=== PATIENT | female | born 1945 | race Caucasian/White ===

== ENCOUNTER 2017-11-21 12:17 | Emergency (ER) | payer MEDICARE, OTHER ==
[~2017-11-21] VITALS: Ht 157.5 cm; Wt 69.1 kg
[2017-11-21 13:14] LABS: GLUCOSE,POINT OF CARE 145 MG/DL (70-110)
[2017-11-21 15:54] LABS: BASOPHILS % (AUTO) 0.5 % (0.0-2.0); EOSINOPHILS % (AUTO) 0.5 % (1.0-6.0); HEMATOCRIT 40.4 % (36-46); HEMOGLOBIN 13.9 g/dL (12.0-16.0); LYMPHOCYTES # (AUTO) 1.7 K/uL (1.0-4.8); LYMPHOCYTES % (AUTO) 17.3 % (22.0-44.0); MEAN CORPUSCULAR HEMOGLOBIN 31.1 pg (26.0-34.0); MEAN CORPUSCULAR HGB CONC 34.5 G/dL (31.0-37.0); MEAN CORPUSCULAR VOLUME 90 fL (80-100); MONOCYTES # (AUTO) 0.5 K/uL (0.1-1.0); MONOCYTES % (AUTO) 5.1 % (2.0-9.0); NEUTROPHILS # (AUTO) 7.6 K/uL (1.8-7.7); NEUTROPHILS % (AUTO) 76.6 % (40.0-70.0); PLATELET COUNT (AUTO) 379 K/uL (150-450); RED BLOOD CELL COUNT(AUTO) 4.47 MIL/uL (4.00-5.20); RED CELL DISTRIBUTION WIDTH 13.2 % (11.5-14.5)
[2017-11-21 16:03] LABS: ANION GAP 11 mmol/L (8-16); CARBON DIOXIDE 26 mmol/L (22-29); CHLORIDE 105 mmol/L (98-107); CREATININE 0.69 mg/dL (0.60-1.30); GLUCOSE,RANDOM 163 mg/dL (70-110); POTASSIUM 3.5 mmol/L (3.5-5.1); SODIUM SERUM 142 mmol/L (136-145); UREA NITROGEN, BLOOD 8 mg/dL (7-18)
[2017-11-21 16:04] LABS: GLOMERULAR FILTR. RATE CALC > 60 mL/min (>60)
[2017-11-21 16:10] LABS: ALANINE AMINOTRANSFERASE 20 U/L (12-78); ALBUMIN 3.6 g/dL (3.4-5.0); ALKALINE PHOSPHATASE 115 U/L (46-116); ASPARTATE AMINOTRANSFERASE 18 U/L (15-37); BILIRUBIN,TOTAL 0.6 mg/dL (0.1-1.0); LIPASE 93 U/L (73-393)
[2017-11-21 19:46] VITALS: BP 143/71
[2017-11-21 20:17] LABS: AMPHET/METH SCREEN,URINE NEGATIVE (NEGATIVE); BARBITURATE SCREEN, URINE NEGATIVE (NEGATIVE); BENZODIAZEPINES SCREEN,URINE NEGATIVE (NEGATIVE); CANNABINOID SCREEN,URINE NEGATIVE (NEGATIVE); COCAINE SCREEN,URINE NEGATIVE (NEGATIVE); METHADONE SCREEN, URINE NEGATIVE (NEGATIVE); OPIATE SCREEN,URINE NEGATIVE (NEGATIVE); PHENCYCLIDINE SCREEN,URINE NEGATIVE (NEGATIVE)
== END 2017-11-21 20:23 | disposition home or self-care (01) ==
LOC: EMS 12:17
DX: R10.9 Unspecified abdominal pain (principal); E78.00 Pure hypercholesterolemia, unspecified; I10 Essential (primary) hypertension
CPT/HCPCS: 93005; 99285

== ENCOUNTER 2017-12-27 21:49 | Emergency (ER) | payer MEDICARE, OTHER ==
[~2017-12-27] VITALS: Ht 157.5 cm; Wt 62.8 kg
[2017-12-27 22:03] LABS: GLUCOSE,POINT OF CARE 116 MG/DL (70-110)
[2017-12-27 23:15] LABS: BASOPHILS % (AUTO) 0.7 % (0.0-2.0); HEMATOCRIT 40.4 % (36-46); HEMOGLOBIN 13.4 g/dL (12.0-16.0); LYMPHOCYTES # (AUTO) 2.1 K/uL (1.0-4.8); LYMPHOCYTES % (AUTO) 26.8 % (22.0-44.0); MEAN CORPUSCULAR HEMOGLOBIN 30.3 pg (26.0-34.0); MEAN CORPUSCULAR HGB CONC 33.2 G/dL (31.0-37.0); MEAN CORPUSCULAR VOLUME 92 fL (80-100); MONOCYTES # (AUTO) 0.5 K/uL (0.1-1.0); MONOCYTES % (AUTO) 6.3 % (2.0-9.0); NEUTROPHILS # (AUTO) 5.1 K/uL (1.8-7.7); NEUTROPHILS % (AUTO) 64.2 % (40.0-70.0); PLATELET COUNT (AUTO) 362 K/uL (150-450); RED BLOOD CELL COUNT(AUTO) 4.42 MIL/uL (4.00-5.20); RED CELL DISTRIBUTION WIDTH 13.5 % (11.5-14.5)
[2017-12-27 23:24] LABS: ANION GAP 10 mmol/L (8-16); CALCIUM, TOTAL 9.9 mg/dL (8.8-10.5); CARBON DIOXIDE 27 mmol/L (22-29); CHLORIDE 106 mmol/L (98-107); GLUCOSE,RANDOM 111 mg/dL (70-110); POTASSIUM 3.6 mmol/L (3.5-5.1); SODIUM SERUM 143 mmol/L (136-145); UREA NITROGEN, BLOOD 7 mg/dL (7-18)
[2017-12-27 23:26] LABS: GLOMERULAR FILTR. RATE CALC > 60 mL/min (>60)
[2017-12-27 23:34] LABS: ALANINE AMINOTRANSFERASE 19 U/L (12-78); ALBUMIN 3.9 g/dL (3.4-5.0); ALKALINE PHOSPHATASE 104 U/L (46-116); ASPARTATE AMINOTRANSFERASE 20 U/L (15-37); BILIRUBIN,TOTAL 0.5 mg/dL (0.1-1.0); TOTAL PROTEIN, SERUM 8.4 g/dL (6.4-8.2)
[2017-12-28 02:28] VITALS: BP 132/76
== END 2017-12-28 02:39 | disposition home or self-care (01) ==
LOC: EMS 21:50
DX: F22 Delusional disorders (principal); E11.9 Type 2 diabetes mellitus without complications; I10 Essential (primary) hypertension
CPT/HCPCS: 93005; 99285

== ENCOUNTER 2018-07-14 13:51 | Inpatient (IN) | payer MEDICARE, MEDICAID ==
[~2018-07-14] VITALS: Ht 157.5 cm; Wt 73.1 kg
[2018-07-14] MEDS ORDERED: ALBU8.5H8 IH (17:10)
[2018-07-14] MEDS ORDERED: PARO10TA89 PO (17:10)
[2018-07-14] MEDS ORDERED: VALS1TAB75 PO (17:10)
[2018-07-14 17:14] LABS: GLUCOSE,POINT OF CARE 105 MG/DL (70-110)
[2018-07-14 17:17] LABS: BASOPHILS % (AUTO) 0.7 % (0.0-2.0); EOSINOPHILS % (AUTO) 1.1 % (1.0-6.0); HEMATOCRIT 41.3 % (36-46); HEMOGLOBIN 14.1 g/dL (12.0-16.0); LYMPHOCYTES # (AUTO) 1.7 K/uL (1.0-4.8); LYMPHOCYTES % (AUTO) 26.3 % (22.0-44.0); MEAN CORPUSCULAR HEMOGLOBIN 30.9 pg (26.0-34.0); MEAN CORPUSCULAR HGB CONC 34.1 G/dL (31.0-37.0); MEAN CORPUSCULAR VOLUME 91 fL (80-100); MONOCYTES # (AUTO) 0.4 K/uL (0.1-1.0); MONOCYTES % (AUTO) 5.8 % (2.0-9.0); NEUTROPHILS # (AUTO) 4.3 K/uL (1.8-7.7); NEUTROPHILS % (AUTO) 66.1 % (40.0-70.0); PLATELET COUNT (AUTO) 384 K/uL (150-450); RED BLOOD CELL COUNT(AUTO) 4.55 MIL/uL (4.00-5.20); RED CELL DISTRIBUTION WIDTH 13.5 % (11.5-14.5)
[2018-07-14 17:28] LABS: ANION GAP 9 mmol/L (8-16); CALCIUM, TOTAL 9.6 mg/dL (8.8-10.5); CARBON DIOXIDE 27 mmol/L (22-29); CHLORIDE 104 mmol/L (98-107); GLOMERULAR FILTR. RATE CALC > 60 mL/min (>60); GLUCOSE,RANDOM 117 mg/dL (70-110); POTASSIUM 4.3 mmol/L (3.5-5.1); SODIUM SERUM 140 mmol/L (136-145); UREA NITROGEN, BLOOD 8 mg/dL (7-18)
[2018-07-14 17:43] LABS: ALANINE AMINOTRANSFERASE 19 U/L (12-78); ALBUMIN 3.8 g/dL (3.4-5.0); ALKALINE PHOSPHATASE 115 U/L (46-116); ASPARTATE AMINOTRANSFERASE 21 U/L (15-37); BILIRUBIN,TOTAL 0.7 mg/dL (0.1-1.0); THYROID STIMULATING HORMONE 1.97 uIU/mL (0.36-3.74); TOTAL PROTEIN, SERUM 8.5 g/dL (6.4-8.2)
[2018-07-14] MEDS ORDERED: LORazepam 1 MG TABLET PO PRN (19:45)
[2018-07-14] MEDS ORDERED: HALOPERIDOL 5 MG TABLET PO PRN (19:45)
[2018-07-14] MEDS ORDERED: ZOLPIDEM TARTRATE 10 MG TABLET PO PRN (19:45)
[2018-07-14] MEDS ORDERED: LORazepam 1 MG TABLET PO ONE (19:45)
[2018-07-14 21:04] LABS: CHOL/HDL RATIO 2.8 (3.9-5.7); CHOLESTEROL 196 mg/dL (131-200); FREE T4 (FREE THYROXINE) 1.19 ng/dL (0.76-1.46); HDL CHOLESTEROL 70 mg/dL (40-60); LDL CHOL (CALC.) 110 mg/dL (0-130); TRIGLYCERIDES 78 mg/dL (15-150)
[2018-07-14 21:15] LABS: HEMOGLOBIN A1C 6.1 % (4.5-6.2)
[2018-07-14] MEDS ORDERED: CloNIDine HCL 0.1 MG TABLET PO PRN (22:00)
[2018-07-14] MEDS ORDERED: MAG HYDROX/AL HYDROX/SIMETH ES 30 ML SUSPENSION UDCUP PO PRN (22:00)
[2018-07-14] MEDS ORDERED: ACETAMINOPHEN 325 MG TABLET PO PRN (22:00)
[2018-07-14] MEDS ORDERED: GuaiFENesin/D-METHORPHAN [SUGAR-FREE] 200-20MG/10 ML SYRUP UDCUP PO PRN (22:00)
[2018-07-14] MEDS ORDERED: ONDANSETRON HCL 4 MG TABLET PO PRN (22:00)
[2018-07-14] MEDS ORDERED: DOCUSATE SODIUM 100 MG CAPSULE PO PRN (22:00)
[2018-07-14] MEDS ORDERED: IBUPROFEN 400 MG TABLET PO PRN (22:00)
[2018-07-14] MEDS ORDERED: MAGNESIUM HYDROXIDE SUSPENSION 30 ML UDCUP PO PRN (22:00)
[2018-07-14] MEDS ORDERED: ALBUTEROL SULFATE HFA 90 MCG/PUFF 8 GM INHALER IH PRN (22:00)
[2018-07-14] MEDS ORDERED: LOPERAMIDE HCL 2 MG CAPSULE PO PRN (22:00)
[2018-07-14] MEDS ORDERED: PETROLATUM,WHITE 28 GM JELLY TP PRN (22:00)
[2018-07-14 22:05] VITALS: BP 134/54
[2018-07-15 06:19] LABS: HEMOGLOBIN A1C 6.2 % (4.5-6.2)
[2018-07-15 06:32] LABS: CHOL/HDL RATIO 2.7 (3.9-5.7); THYROID STIMULATING HORMONE 1.75 uIU/mL (0.36-3.74)
[2018-07-15 08:33] VITALS: BP 123/85
[2018-07-15] MEDS ORDERED: HYDROCHLOROTHIAZIDE 25 MG TABLET PO SCH (09:00)
[2018-07-15] MEDS: HYDROCHLOROTHIAZIDE 25 MG TABLET PO SCH (11:32)
[2018-07-15] MEDS: VALSARTAN 160 MG TABLET PO SCH (11:33)
[2018-07-15 18:52] LABS: AMPHET/METH SCREEN,URINE NEGATIVE (NEGATIVE); BARBITURATE SCREEN, URINE NEGATIVE (NEGATIVE); BENZODIAZEPINES SCREEN,URINE NEGATIVE (NEGATIVE); CANNABINOID SCREEN,URINE NEGATIVE (NEGATIVE); COCAINE SCREEN,URINE NEGATIVE (NEGATIVE); METHADONE SCREEN, URINE NEGATIVE (NEGATIVE); OPIATE SCREEN,URINE NEGATIVE (NEGATIVE)
[2018-07-15 18:54] LABS: PHENCYCLIDINE SCREEN,URINE NEGATIVE (NEGATIVE)
[2018-07-15 19:11] VITALS: BP 127/82
[2018-07-15 19:29] LABS: APPEARANCE,URINE CLEAR (CLEAR); BILIRUBIN,URINE NEGATIVE (NEGATIVE); GLUCOSE, URINE (UA) NEGATIVE (NEGATIVE); KETONES,URINE NEGATIVE (NEGATIVE); LEUKOCYTE ESTERASE ,URINE NEGATIVE (NEGATIVE); NITRATE,URINE NEGATIVE (NEGATIVE); OCCULT BLOOD,URINE NEGATIVE (NEGATIVE); PH,URINE 6.5 (5.0-8.0); PROTEIN,URINE NEGATIVE (NEGATIVE)
[2018-07-16 08:05] VITALS: BP 154/66
[2018-07-16] MEDS: HYDROCHLOROTHIAZIDE 25 MG TABLET PO SCH (10:43)
[2018-07-16] MEDS: VALSARTAN 160 MG TABLET PO SCH (10:43)
[2018-07-16 17:00] VITALS: BP 140/67
[2018-07-16] MEDS: RisperiDONE 1 MG TABLET PO SCH (20:54)
[2018-07-17 08:36] VITALS: BP 138/86
[2018-07-17] MEDS: HYDROCHLOROTHIAZIDE 25 MG TABLET PO SCH (10:14)
[2018-07-17] MEDS: VALSARTAN 160 MG TABLET PO SCH (10:14)
[2018-07-17 16:54] VITALS: BP 122/64
[2018-07-17] MEDS: RisperiDONE 1 MG TABLET PO SCH (21:22)
[2018-07-18 08:22] VITALS: BP 156/74
[2018-07-18] MEDS: HYDROCHLOROTHIAZIDE 25 MG TABLET PO SCH (10:40)
[2018-07-18] MEDS: VALSARTAN 160 MG TABLET PO SCH (10:41)
[2018-07-18] MEDS ORDERED: ALBUTEROL SULFATE HFA 90 MCG/PUFF 8 GM INHALER IH PRN (11:15)
[2018-07-18] MEDS: RisperiDONE 1 MG TABLET PO SCH (21:11)
[2018-07-18 22:46] VITALS: BP 124/85
[2018-07-19 09:11] VITALS: BP 142/70
[2018-07-19] MEDS: VALSARTAN 160 MG TABLET PO SCH (10:08)
[2018-07-19] MEDS: HYDROCHLOROTHIAZIDE 25 MG TABLET PO SCH (10:08)
[2018-07-19] MEDS: FLUTICASONE/VILANTEROL 200-25 MCG/INH INHALER [14] IH SCH (10:10)
[2018-07-19 16:30] VITALS: BP 130/77
[2018-07-19] MEDS: RisperiDONE 1 MG TABLET PO SCH (21:15)
[2018-07-20 08:00] VITALS: BP 135/65
[2018-07-20] MEDS: FLUTICASONE/VILANTEROL 200-25 MCG/INH INHALER [14] IH SCH (09:20)
[2018-07-20] MEDS: VALSARTAN 160 MG TABLET PO SCH (09:21)
[2018-07-20] MEDS: HYDROCHLOROTHIAZIDE 25 MG TABLET PO SCH (09:21)
[2018-07-20 16:45] VITALS: BP 132/77
[2018-07-20] MEDS: RisperiDONE 2 MG TABLET PO SCH (20:52)
[2018-07-21 08:00] VITALS: BP 157/79
[2018-07-21] MEDS: VALSARTAN 160 MG TABLET PO SCH (10:00)
[2018-07-21] MEDS: HYDROCHLOROTHIAZIDE 25 MG TABLET PO SCH (10:00)
[2018-07-21] MEDS: FLUTICASONE/VILANTEROL 200-25 MCG/INH INHALER [14] IH SCH (10:01)
[2018-07-21 16:15] VITALS: BP 128/50
[2018-07-21] MEDS: RisperiDONE 2 MG TABLET PO SCH (21:00)
[2018-07-22 11:38] VITALS: BP 129/80
[2018-07-22] MEDS: VALSARTAN 160 MG TABLET PO SCH (11:39)
[2018-07-22] MEDS: HYDROCHLOROTHIAZIDE 25 MG TABLET PO SCH (11:39)
[2018-07-22] MEDS: FLUTICASONE/VILANTEROL 200-25 MCG/INH INHALER [14] IH SCH (11:40)
[2018-07-22 17:04] VITALS: BP 115/56
[2018-07-22] MEDS: RisperiDONE 2 MG TABLET PO SCH (20:14)
[2018-07-23 08:00] VITALS: BP 151/62
[2018-07-23] MEDS: RisperiDONE 1 MG TABLET PO SCH (09:39)
[2018-07-23] MEDS: VALSARTAN 160 MG TABLET PO SCH (09:39)
[2018-07-23] MEDS: FLUTICASONE/VILANTEROL 200-25 MCG/INH INHALER [14] IH SCH (09:39)
[2018-07-23] MEDS: HYDROCHLOROTHIAZIDE 25 MG TABLET PO SCH (09:39)
[2018-07-23] MEDS: RisperiDONE 2 MG TABLET PO SCH (20:01)
[2018-07-23 20:47] VITALS: BP 112/70
[2018-07-24 08:05] VITALS: BP 153/77
[2018-07-24] MEDS: RisperiDONE 1 MG TABLET PO SCH (09:32)
[2018-07-24] MEDS: VALSARTAN 160 MG TABLET PO SCH (09:32)
[2018-07-24] MEDS: HYDROCHLOROTHIAZIDE 25 MG TABLET PO SCH (09:32)
[2018-07-24] MEDS: FLUTICASONE/VILANTEROL 200-25 MCG/INH INHALER [14] IH SCH (09:35)
[2018-07-24 16:27] VITALS: BP 130/75
[2018-07-24] MEDS: RisperiDONE 2 MG TABLET PO SCH (20:53)
[2018-07-25 08:30] VITALS: BP 132/62
[2018-07-25] MEDS: VALSARTAN 160 MG TABLET PO SCH (09:11)
[2018-07-25] MEDS: RisperiDONE 1 MG TABLET PO SCH (09:11)
[2018-07-25] MEDS: FLUTICASONE/VILANTEROL 200-25 MCG/INH INHALER [14] IH SCH (09:11)
[2018-07-25] MEDS: HYDROCHLOROTHIAZIDE 25 MG TABLET PO SCH (09:11)
[2018-07-25 16:31] VITALS: BP 124/78
[2018-07-25] MEDS: RisperiDONE 2 MG TABLET PO SCH (20:53)
[2018-07-26] MEDS: RisperiDONE 1 MG TABLET PO SCH (08:41)
[2018-07-26] MEDS: HYDROCHLOROTHIAZIDE 25 MG TABLET PO SCH (08:42)
[2018-07-26] MEDS: VALSARTAN 160 MG TABLET PO SCH (08:42)
[2018-07-26] MEDS: FLUTICASONE/VILANTEROL 200-25 MCG/INH INHALER [14] IH SCH (08:43)
[2018-07-26 09:08] VITALS: BP 132/74
[2018-07-26 11:03] VITALS: BP 132/72
[2018-07-26 16:58] VITALS: BP 108/59
[2018-07-26] MEDS: RisperiDONE 2 MG TABLET PO SCH (20:12)
[2018-07-27 08:02] VITALS: BP 143/77
[2018-07-27] MEDS: HYDROCHLOROTHIAZIDE 25 MG TABLET PO SCH (08:27)
[2018-07-27] MEDS: RisperiDONE 1 MG TABLET PO SCH (08:27)
[2018-07-27] MEDS: FLUTICASONE/VILANTEROL 200-25 MCG/INH INHALER [14] IH SCH (08:28)
[2018-07-27] MEDS: VALSARTAN 160 MG TABLET PO SCH (08:28)
[2018-07-27 17:29] VITALS: BP 130/79
[2018-07-27] MEDS: RisperiDONE 2 MG TABLET PO SCH (20:17)
[2018-07-28 08:20] VITALS: BP 132/63
[2018-07-28] MEDS: HYDROCHLOROTHIAZIDE 25 MG TABLET PO SCH (08:41)
[2018-07-28] MEDS: RisperiDONE 1 MG TABLET PO SCH (08:41)
[2018-07-28] MEDS: FLUTICASONE/VILANTEROL 200-25 MCG/INH INHALER [14] IH SCH (08:42)
[2018-07-28] MEDS: VALSARTAN 160 MG TABLET PO SCH (08:42)
[2018-07-28 16:41] VITALS: BP 113/86
[2018-07-28] MEDS: RisperiDONE 2 MG TABLET PO SCH (20:50)
[2018-07-29 08:00] VITALS: BP 131/84
[2018-07-29] MEDS: VALSARTAN 160 MG TABLET PO SCH (09:02)
[2018-07-29] MEDS: HYDROCHLOROTHIAZIDE 25 MG TABLET PO SCH (09:02)
[2018-07-29] MEDS: FLUTICASONE/VILANTEROL 200-25 MCG/INH INHALER [14] IH SCH (09:03)
[2018-07-29] MEDS: RisperiDONE 1 MG TABLET PO SCH (09:11)
[2018-07-29 17:12] VITALS: BP 125/82
[2018-07-29] MEDS: RisperiDONE 2 MG TABLET PO SCH (21:10)
[2018-07-30 08:30] VITALS: BP 153/73
[2018-07-30] MEDS: HYDROCHLOROTHIAZIDE 25 MG TABLET PO SCH (09:15)
[2018-07-30] MEDS: FLUTICASONE/VILANTEROL 200-25 MCG/INH INHALER [14] IH SCH (09:15)
[2018-07-30] MEDS: RisperiDONE 1 MG TABLET PO SCH (09:16)
[2018-07-30] MEDS: VALSARTAN 160 MG TABLET PO SCH (09:16)
[2018-07-30] MEDS ORDERED: RISP2 PO (10:32)
[2018-07-30] MEDS ORDERED: RISP1 PO (10:32)
[2018-07-30] MEDS ORDERED: FLUT1BLS IH (10:37)
[2018-07-30] MEDS ORDERED: HYDR25TA PO (10:38)
[2018-07-30] MEDS ORDERED: VALS160T2 PO (10:38)
== END 2018-07-30 13:30 | disposition home or self-care (01) | DRG 885 ==
LOC: EMS 13:52 → 3EI 20:30
PROVIDERS: ADMIT Psychiatry & Neurology Psychiatry; ATTEND Psychiatry & Neurology Psychiatry
DX: F20.0 Paranoid schizophrenia (principal); J45.901 Unspecified asthma with (acute) exacerbation; E78.5 Hyperlipidemia, unspecified; I10 Essential (primary) hypertension; E11.9 Type 2 diabetes mellitus without complications; Z79.899 Other long term (current) drug therapy; F32.9 Major depressive disorder, single episode, unspecified
CPT/HCPCS: 80307; 83036; 84439; 84443; G0480

== ENCOUNTER 2018-10-29 13:57 | Inpatient (IN) | payer MEDICARE, MEDICAID ==
[~2018-10-29] VITALS: Ht 157.5 cm; Wt 73.0 kg
[~2018-10-29 13:57] MED LIST: FLUT1BLS IH; HYDR25TA PO; RISP1 PO; RISP2 PO; VALS160T2 PO
[2018-10-29 15:07] LABS: BASOPHILS % (AUTO) 0.6 % (0.0-2.0); EOSINOPHILS % (AUTO) 1.4 % (1.0-6.0); HEMATOCRIT 39.9 % (36-46); HEMOGLOBIN 13.2 g/dL (12.0-16.0); LYMPHOCYTES # (AUTO) 2.1 K/uL (1.0-4.8); LYMPHOCYTES % (AUTO) 31.8 % (22.0-44.0); MEAN CORPUSCULAR HEMOGLOBIN 31.4 pg (26.0-34.0); MEAN CORPUSCULAR VOLUME 95 fL (80-100); MONOCYTES # (AUTO) 0.4 K/uL (0.1-1.0); MONOCYTES % (AUTO) 6.2 % (2.0-9.0); NEUTROPHILS # (AUTO) 4.1 K/uL (1.8-7.7); PLATELET COUNT (AUTO) 364 K/uL (150-450); RED CELL DISTRIBUTION WIDTH 13.6 % (11.5-14.5)
[2018-10-29 15:18] LABS: GLUCOSE,POINT OF CARE 110 MG/DL (70-110)
[2018-10-29 15:19] LABS: ANION GAP 7 mmol/L (8-16); CALCIUM, TOTAL 9.7 mg/dL (8.8-10.5); CARBON DIOXIDE 28 mmol/L (22-29); CHLORIDE 104 mmol/L (98-107); CREATININE 0.66 mg/dL (0.60-1.30); GLUCOSE,RANDOM 107 mg/dL (70-110); POTASSIUM 3.8 mmol/L (3.5-5.1); SODIUM SERUM 139 mmol/L (136-145); UREA NITROGEN, BLOOD 12 mg/dL (7-18)
[2018-10-29 15:20] LABS: GLOMERULAR FILTR. RATE CALC > 60 mL/min (>60)
[2018-10-29 15:25] LABS: ALANINE AMINOTRANSFERASE 20 U/L (12-78); ALBUMIN 4.1 g/dL (3.4-5.0); ALKALINE PHOSPHATASE 83 U/L (46-116); ASPARTATE AMINOTRANSFERASE 16 U/L (15-37); BILIRUBIN,TOTAL 0.6 mg/dL (0.1-1.0)
[2018-10-29 18:07] LABS: APPEARANCE,URINE CLEAR (CLEAR); BILIRUBIN,URINE NEGATIVE (NEGATIVE); GLUCOSE, URINE (UA) NEGATIVE (NEGATIVE); KETONES,URINE NEGATIVE (NEGATIVE); LEUKOCYTE ESTERASE ,URINE NEGATIVE (NEGATIVE); NITRATE,URINE NEGATIVE (NEGATIVE); OCCULT BLOOD,URINE MODERATE (NEGATIVE); PROTEIN,URINE NEGATIVE (NEGATIVE)
[2018-10-29 18:12] LABS: AMPHET/METH SCREEN,URINE NEGATIVE (NEGATIVE); BARBITURATE SCREEN, URINE NEGATIVE (NEGATIVE); BENZODIAZEPINES SCREEN,URINE NEGATIVE (NEGATIVE); CANNABINOID SCREEN,URINE NEGATIVE (NEGATIVE); COCAINE SCREEN,URINE NEGATIVE (NEGATIVE); METHADONE SCREEN, URINE NEGATIVE (NEGATIVE); OPIATE SCREEN,URINE NEGATIVE (NEGATIVE)
[2018-10-29 18:15] LABS: PHENCYCLIDINE SCREEN,URINE NEGATIVE (NEGATIVE)
[2018-10-29 18:55] LABS: BACTERIA,URINE None Seen /HPF (None Seen)
[2018-10-29 18:56] LABS: SQUAMOUS EPITHELIAL CELL,UR Rare /LPF (None Seen); WBC,URINE 0-2 /HPF (0-5)
[2018-10-29 22:28] LABS: GLUCOSE,POINT OF CARE 99 MG/DL (70-110)
[2018-10-29] MEDS ORDERED: ZOLPIDEM TARTRATE 10 MG TABLET PO PRN (22:30)
[2018-10-29] MEDS ORDERED: LORazepam 2 MG TABLET PO PRN (22:30)
[2018-10-29] MEDS ORDERED: HALOPERIDOL 5 MG TABLET PO PRN (22:30)
[2018-10-30 00:06] VITALS: BP 174/81
[2018-10-30] MEDS ORDERED: LOPERAMIDE HCL 2 MG CAPSULE PO PRN (06:45)
[2018-10-30] MEDS ORDERED: CloNIDine HCL 0.1 MG TABLET PO PRN (06:45)
[2018-10-30] MEDS ORDERED: MAGNESIUM HYDROXIDE SUSPENSION 30 ML UDCUP PO PRN (06:45)
[2018-10-30] MEDS ORDERED: MAG HYDROX/AL HYDROX/SIMETH ES 30 ML SUSPENSION UDCUP PO PRN (06:45)
[2018-10-30] MEDS ORDERED: PETROLATUM,WHITE 28 GM JELLY TP PRN (06:45)
[2018-10-30] MEDS ORDERED: ONDANSETRON HCL 4 MG TABLET PO PRN (06:45)
[2018-10-30] MEDS ORDERED: DOCUSATE SODIUM 100 MG CAPSULE PO PRN (06:45)
[2018-10-30] MEDS ORDERED: NICOTINE 14 MG/24 HOUR PATCH TD PRN (06:45)
[2018-10-30] MEDS ORDERED: GuaiFENesin/D-METHORPHAN [SUGAR-FREE] 200-20MG/10 ML SYRUP UDCUP PO PRN (06:45)
[2018-10-30] MEDS ORDERED: ACETAMINOPHEN 325 MG TABLET PO PRN (06:45)
[2018-10-30] MEDS ORDERED: IBUPROFEN 400 MG TABLET PO PRN (06:45)
[2018-10-30] MEDS ORDERED: ALBUTEROL SULFATE HFA 90 MCG/PUFF 8 GM INHALER IH PRN (06:45)
[2018-10-30 08:05] VITALS: BP 164/85
[2018-10-30] MEDS: FLUTICASONE/VILANTEROL 200-25 MCG/INH INHALER [14] IH SCH (09:43)
[2018-10-30] MEDS: HYDROCHLOROTHIAZIDE 25 MG TABLET PO SCH (09:43)
[2018-10-30] MEDS: VALSARTAN 160 MG TABLET PO SCH (09:43)
[2018-10-30 16:16] VITALS: BP 158/68
[2018-10-30] MEDS: RisperiDONE 2 MG TABLET PO SCH (20:34)
[2018-10-31 07:27] LABS: BASOPHILS % (AUTO) 0.6 % (0.0-2.0); EOSINOPHILS % (AUTO) 3.4 % (1.0-6.0); HEMATOCRIT 38.1 % (36-46); HEMOGLOBIN 12.5 g/dL (12.0-16.0); LYMPHOCYTES % (AUTO) 30.3 % (22.0-44.0); MEAN CORPUSCULAR HEMOGLOBIN 31.6 pg (26.0-34.0); MEAN CORPUSCULAR HGB CONC 32.9 G/dL (31.0-37.0); MEAN CORPUSCULAR VOLUME 96 fL (80-100); MONOCYTES # (AUTO) 0.5 K/uL (0.1-1.0); MONOCYTES % (AUTO) 7.2 % (2.0-9.0); NEUTROPHILS # (AUTO) 3.9 K/uL (1.8-7.7); NEUTROPHILS % (AUTO) 58.5 % (40.0-70.0); PLATELET COUNT (AUTO) 316 K/uL (150-450); RED BLOOD CELL COUNT(AUTO) 3.97 MIL/uL (4.00-5.20); RED CELL DISTRIBUTION WIDTH 13.9 % (11.5-14.5)
[2018-10-31 07:40] LABS: HEMOGLOBIN A1C 6.2 % (4.5-6.2)
[2018-10-31 07:50] LABS: ALANINE AMINOTRANSFERASE 17 U/L (12-78); ALBUMIN 3.3 g/dL (3.4-5.0); ALKALINE PHOSPHATASE 67 U/L (46-116); ANION GAP 8 mmol/L (8-16); ASPARTATE AMINOTRANSFERASE 12 U/L (15-37); BILIRUBIN,TOTAL 0.4 mg/dL (0.1-1.0); CALCIUM, TOTAL 9.6 mg/dL (8.8-10.5); CARBON DIOXIDE 28 mmol/L (22-29); CHLORIDE 104 mmol/L (98-107); CHOL/HDL RATIO 2.6 (3.9-5.7); CHOLESTEROL 170 mg/dL (131-200); CREATININE 0.69 mg/dL (0.60-1.30); GLUCOSE,RANDOM 126 mg/dL (70-110); HDL CHOLESTEROL 65 mg/dL (40-60); LDL CHOL (CALC.) 86 mg/dL (0-130); POTASSIUM 4.9 mmol/L (3.5-5.1); SODIUM SERUM 140 mmol/L (136-145); THYROID STIMULATING HORMONE 0.75 uIU/mL (0.36-3.74); TOTAL PROTEIN, SERUM 6.7 g/dL (6.4-8.2); TRIGLYCERIDES 93 mg/dL (15-150); UREA NITROGEN, BLOOD 20 mg/dL (7-18)
[2018-10-31 07:51] LABS: GLOMERULAR FILTR. RATE CALC > 60 mL/min (>60)
[2018-10-31 08:00] VITALS: BP 112/50
[2018-10-31] MEDS: RisperiDONE 1 MG TABLET PO SCH (10:31)
[2018-10-31] MEDS: HYDROCHLOROTHIAZIDE 25 MG TABLET PO SCH (10:31)
[2018-10-31] MEDS: FLUTICASONE/VILANTEROL 200-25 MCG/INH INHALER [14] IH SCH (10:31)
[2018-10-31] MEDS: VALSARTAN 160 MG TABLET PO SCH (10:32)
[2018-10-31] MEDS: RisperiDONE 2 MG TABLET PO SCH (20:59)
[2018-10-31 21:01] VITALS: BP 111/62
[2018-11-01 08:00] VITALS: BP 155/75
[2018-11-01] MEDS: HYDROCHLOROTHIAZIDE 25 MG TABLET PO SCH (08:19)
[2018-11-01] MEDS: RisperiDONE 1 MG TABLET PO SCH (08:19)
[2018-11-01] MEDS: VALSARTAN 160 MG TABLET PO SCH (08:19)
[2018-11-01] MEDS: FLUTICASONE/VILANTEROL 200-25 MCG/INH INHALER [14] IH SCH (08:20)
[2018-11-01 08:21] VITALS: BP 148/76
[2018-11-01 16:13] VITALS: BP 124/58
[2018-11-01] MEDS: RisperiDONE 2 MG TABLET PO SCH (20:11)
[2018-11-02 08:05] VITALS: BP_SYST 148; BP_SYST 185; BP_DIAS 77; BP_DIAS 81
[2018-11-02] MEDS: RisperiDONE 1 MG TABLET PO SCH (09:03)
[2018-11-02] MEDS: VALSARTAN 160 MG TABLET PO SCH (09:03)
[2018-11-02] MEDS: HYDROCHLOROTHIAZIDE 25 MG TABLET PO SCH (09:04)
[2018-11-02] MEDS: FLUTICASONE/VILANTEROL 200-25 MCG/INH INHALER [14] IH SCH (09:04)
[2018-11-02 17:46] VITALS: BP 147/73
[2018-11-02] MEDS: RisperiDONE 2 MG TABLET PO SCH (20:20)
[2018-11-02 20:23] VITALS: BP 124/52
[2018-11-03] MEDS: HYDROCHLOROTHIAZIDE 25 MG TABLET PO SCH (08:20)
[2018-11-03] MEDS: RisperiDONE 1 MG TABLET PO SCH (08:20)
[2018-11-03] MEDS: FLUTICASONE/VILANTEROL 200-25 MCG/INH INHALER [14] IH SCH (08:20)
[2018-11-03] MEDS: VALSARTAN 160 MG TABLET PO SCH (08:20)
[2018-11-03 10:06] VITALS: BP 121/71
[2018-11-03] MEDS ORDERED: RISP2 PO (12:27)
[2018-11-03] MEDS ORDERED: RISP1 PO (12:27)
== END 2018-11-03 18:30 | disposition home or self-care (01) | DRG 750 ==
LOC: EMS 13:58 → 3EI 22:00
DX: F20.0 Paranoid schizophrenia (principal); E11.9 Type 2 diabetes mellitus without complications; F32.9 Major depressive disorder, single episode, unspecified; I10 Essential (primary) hypertension; J45.909 Unspecified asthma, uncomplicated; Z79.899 Other long term (current) drug therapy
CPT/HCPCS: 83036; 84443; G0480

== ENCOUNTER 2018-12-16 06:47 | Inpatient (IN) | payer MEDICARE, MEDICAID ==
[~2018-12-16] VITALS: Ht 157.5 cm; Wt 73.8 kg
[2018-12-16 08:11] LABS: GLUCOSE,POINT OF CARE 143 MG/DL (70-110)
[2018-12-16 09:00] LABS: GLUCOSE,POINT OF CARE 148 MG/DL (70-110)
[2018-12-16 09:12] LABS: AMPHET/METH SCREEN,URINE NEGATIVE (NEGATIVE); BARBITURATE SCREEN, URINE NEGATIVE (NEGATIVE); BENZODIAZEPINES SCREEN,URINE NEGATIVE (NEGATIVE); CANNABINOID SCREEN,URINE NEGATIVE (NEGATIVE); COCAINE SCREEN,URINE NEGATIVE (NEGATIVE); METHADONE SCREEN, URINE NEGATIVE (NEGATIVE); OPIATE SCREEN,URINE NEGATIVE (NEGATIVE)
[2018-12-16 09:13] LABS: PHENCYCLIDINE SCREEN,URINE NEGATIVE (NEGATIVE)
[2018-12-16 09:15] LABS: APPEARANCE,URINE CLEAR (CLEAR); BILIRUBIN,URINE NEGATIVE (NEGATIVE); GLUCOSE, URINE (UA) NEGATIVE (NEGATIVE); KETONES,URINE NEGATIVE (NEGATIVE); LEUKOCYTE ESTERASE ,URINE NEGATIVE (NEGATIVE); NITRATE,URINE NEGATIVE (NEGATIVE); OCCULT BLOOD,URINE SMALL (NEGATIVE); PH,URINE 5.5 (5.0-8.0); PROTEIN,URINE NEGATIVE (NEGATIVE); UROBILINOGEN,URINE 0.2 mg/dL (<=1.0)
[2018-12-16 09:15] LABS: BASOPHILS % (AUTO) 0.9 % (0.0-2.0); EOSINOPHILS % (AUTO) 0.6 % (1.0-6.0); HEMATOCRIT 39.6 % (36-46); HEMOGLOBIN 13.3 g/dL (12.0-16.0); LYMPHOCYTES # (AUTO) 1.3 K/uL (1.0-4.8); LYMPHOCYTES % (AUTO) 22.1 % (22.0-44.0); MEAN CORPUSCULAR HEMOGLOBIN 31.6 pg (26.0-34.0); MEAN CORPUSCULAR HGB CONC 33.6 G/dL (31.0-37.0); MEAN CORPUSCULAR VOLUME 94 fL (80-100); MONOCYTES # (AUTO) 0.3 K/uL (0.1-1.0); MONOCYTES % (AUTO) 4.9 % (2.0-9.0); NEUTROPHILS # (AUTO) 4.2 K/uL (1.8-7.7); NEUTROPHILS % (AUTO) 71.5 % (40.0-70.0); PLATELET COUNT (AUTO) 311 K/uL (150-450); RED BLOOD CELL COUNT(AUTO) 4.21 MIL/uL (4.00-5.20); RED CELL DISTRIBUTION WIDTH 13.1 % (11.5-14.5)
[2018-12-16 09:24] LABS: ANION GAP 8 mmol/L (8-16); CALCIUM, TOTAL 9.3 mg/dL (8.8-10.5); CARBON DIOXIDE 24 mmol/L (22-29); CHLORIDE 106 mmol/L (98-107); CREATININE 0.68 mg/dL (0.60-1.30); GLUCOSE,RANDOM 149 mg/dL (70-110); POTASSIUM 3.2 mmol/L (3.5-5.1); SODIUM SERUM 138 mmol/L (136-145); UREA NITROGEN, BLOOD 8 mg/dL (7-18)
[2018-12-16 09:24] LABS: BACTERIA,URINE Rare /HPF (None Seen); SQUAMOUS EPITHELIAL CELL,UR Few /LPF (None Seen); WBC,URINE 0-2 /HPF (0-5)
[2018-12-16 09:26] LABS: GLOMERULAR FILTR. RATE CALC > 60 mL/min (>60)
[2018-12-16 09:30] LABS: ALANINE AMINOTRANSFERASE 14 U/L (12-78); ALBUMIN 4.1 g/dL (3.4-5.0); ALKALINE PHOSPHATASE 90 U/L (46-116); ASPARTATE AMINOTRANSFERASE 18 U/L (15-37); BILIRUBIN,TOTAL 0.6 mg/dL (0.1-1.0); TOTAL PROTEIN, SERUM 7.8 g/dL (6.4-8.2)
[2018-12-16] MEDS ORDERED: HALOPERIDOL 5 MG TABLET PO PRN (10:45)
[2018-12-16] MEDS ORDERED: ZOLPIDEM TARTRATE 10 MG TABLET PO PRN (10:45)
[2018-12-16] MEDS ORDERED: LORazepam 2 MG TABLET PO PRN (10:45)
[2018-12-16] MEDS: HYDROCHLOROTHIAZIDE 25 MG TABLET PO SCH (12:56)
[2018-12-16 13:23] VITALS: BP 182/56
[2018-12-16] MEDS ORDERED: IBUPROFEN 400 MG TABLET PO PRN (13:45)
[2018-12-16] MEDS ORDERED: ONDANSETRON HCL 4 MG TABLET PO PRN (13:45)
[2018-12-16] MEDS ORDERED: MAGNESIUM HYDROXIDE SUSPENSION 30 ML UDCUP PO PRN (13:45)
[2018-12-16] MEDS ORDERED: MAG HYDROX/AL HYDROX/SIMETH ES 30 ML SUSPENSION UDCUP PO PRN (13:45)
[2018-12-16] MEDS ORDERED: PETROLATUM,WHITE 28 GM JELLY TP PRN (13:45)
[2018-12-16] MEDS ORDERED: DOCUSATE SODIUM 100 MG CAPSULE PO PRN (13:45)
[2018-12-16] MEDS ORDERED: CloNIDine HCL 0.1 MG TABLET PO PRN (13:45)
[2018-12-16] MEDS ORDERED: ALBUTEROL SULFATE HFA 90 MCG/PUFF 8 GM INHALER IH PRN (13:45)
[2018-12-16] MEDS ORDERED: NICOTINE 14 MG/24 HOUR PATCH TD PRN (13:45)
[2018-12-16] MEDS ORDERED: LOPERAMIDE HCL 2 MG CAPSULE PO PRN (13:45)
[2018-12-16] MEDS ORDERED: GuaiFENesin/D-METHORPHAN [SUGAR-FREE] 200-20MG/10 ML SYRUP UDCUP PO PRN (13:45)
[2018-12-16] MEDS ORDERED: POTASSIUM CHLORIDE 20 MEQ ER TABLET PO ONE (14:30)
[2018-12-16] MEDS: FLUTICASONE/VILANTEROL 200-25 MCG/INH INHALER [14] IH SCH (15:15)
[2018-12-16] MEDS: VALSARTAN 160 MG TABLET PO SCH (15:15)
[2018-12-16 20:59] VITALS: BP 99/50
[2018-12-17 06:04] LABS: HEMOGLOBIN A1C 5.5 % (4.5-6.2)
[2018-12-17 06:16] LABS: CHOL/HDL RATIO 2.8 (3.9-5.7); POTASSIUM 4.1 mmol/L (3.5-5.1); THYROID STIMULATING HORMONE 1.01 uIU/mL (0.36-3.74)
[2018-12-17 08:30] VITALS: BP 159/84
[2018-12-17] MEDS: VALSARTAN 160 MG TABLET PO SCH (09:23)
[2018-12-17] MEDS: HYDROCHLOROTHIAZIDE 25 MG TABLET PO SCH (09:23)
[2018-12-17] MEDS: CEPHALEXIN MONOHYDRATE 500 MG CAPSULE PO SCH ×3 (09:23→17:07)
[2018-12-17] MEDS: FLUTICASONE/VILANTEROL 200-25 MCG/INH INHALER [14] IH SCH (09:26)
[2018-12-17 17:30] VITALS: BP 141/67
[2018-12-17] MEDS: RisperiDONE 2 MG TABLET PO SCH (20:22)
[2018-12-18 08:58] VITALS: BP 126/71
[2018-12-18] MEDS: RisperiDONE 1 MG TABLET PO SCH (09:42)
[2018-12-18] MEDS: FLUTICASONE/VILANTEROL 200-25 MCG/INH INHALER [14] IH SCH (09:42)
[2018-12-18] MEDS: CEPHALEXIN MONOHYDRATE 500 MG CAPSULE PO SCH ×3 (09:42→16:31)
[2018-12-18] MEDS: HYDROCHLOROTHIAZIDE 25 MG TABLET PO SCH (09:43)
[2018-12-18] MEDS: VALSARTAN 160 MG TABLET PO SCH (09:43)
[2018-12-18 17:20] VITALS: BP 154/84
[2018-12-18] MEDS: RisperiDONE 2 MG TABLET PO SCH (20:11)
[2018-12-19] MEDS: VALSARTAN 160 MG TABLET PO SCH (09:01)
[2018-12-19] MEDS: RisperiDONE 1 MG TABLET PO SCH (09:01)
[2018-12-19] MEDS: CEPHALEXIN MONOHYDRATE 500 MG CAPSULE PO SCH ×3 (09:01→16:07)
[2018-12-19] MEDS: HYDROCHLOROTHIAZIDE 25 MG TABLET PO SCH (09:01)
[2018-12-19] MEDS: FLUTICASONE/VILANTEROL 200-25 MCG/INH INHALER [14] IH SCH (09:02)
[2018-12-19 09:46] VITALS: BP 120/54
[2018-12-19 16:52] VITALS: BP 104/65
[2018-12-19] MEDS: RisperiDONE 2 MG TABLET PO SCH (20:47)
[2018-12-20 08:38] VITALS: BP 148/74
[2018-12-20] MEDS: VALSARTAN 160 MG TABLET PO SCH (09:43)
[2018-12-20] MEDS: RisperiDONE 1 MG TABLET PO SCH (09:43)
[2018-12-20] MEDS: FLUTICASONE/VILANTEROL 200-25 MCG/INH INHALER [14] IH SCH (09:43)
[2018-12-20] MEDS: HYDROCHLOROTHIAZIDE 25 MG TABLET PO SCH (09:43)
[2018-12-20] MEDS: CEPHALEXIN MONOHYDRATE 500 MG CAPSULE PO SCH ×3 (09:43→17:00)
[2018-12-20 16:53] VITALS: BP 131/77
[2018-12-20] MEDS: RisperiDONE 2 MG TABLET PO SCH (20:35)
[2018-12-21] MEDS: FLUTICASONE/VILANTEROL 200-25 MCG/INH INHALER [14] IH SCH (08:10)
[2018-12-21] MEDS: RisperiDONE 1 MG TABLET PO SCH (08:10)
[2018-12-21] MEDS: HYDROCHLOROTHIAZIDE 25 MG TABLET PO SCH (08:10)
[2018-12-21] MEDS: VALSARTAN 160 MG TABLET PO SCH (08:10)
[2018-12-21] MEDS: CEPHALEXIN MONOHYDRATE 500 MG CAPSULE PO SCH ×3 (08:11→16:12)
[2018-12-21 16:25] VITALS: BP 133/78
[2018-12-21] MEDS: RisperiDONE 2 MG TABLET PO SCH (20:47)
[2018-12-22 08:00] VITALS: BP 135/89
[2018-12-22] MEDS: VALSARTAN 160 MG TABLET PO SCH (09:02)
[2018-12-22] MEDS: HYDROCHLOROTHIAZIDE 25 MG TABLET PO SCH (09:02)
[2018-12-22] MEDS: RisperiDONE 1 MG TABLET PO SCH (09:02)
[2018-12-22] MEDS: FLUTICASONE/VILANTEROL 200-25 MCG/INH INHALER [14] IH SCH (09:03)
== END 2018-12-22 18:30 | disposition home or self-care (01) | DRG 750 ==
LOC: EMS 06:50 → 3EI 13:01
PROVIDERS: ADMIT Psychiatry & Neurology Psychiatry; ATTEND Psychiatry & Neurology Psychiatry
DX: F20.9 Schizophrenia, unspecified (principal); E11.65 Type 2 diabetes mellitus with hyperglycemia; I10 Essential (primary) hypertension; J45.909 Unspecified asthma, uncomplicated
CPT/HCPCS: 83036; 84132; 84443; G0480